=== PATIENT | female | born 1980 | race Caucasian/White ===

== ENCOUNTER 2017-04-29 17:52 | Inpatient (IN) | payer OTHER ==
[~2017-04-29] VITALS: Ht 157.4 cm; Wt 52.9 kg
[~2017-04-29 17:52] MED LIST: ATARAX25 MG PO; AUGMENTIN 875875 MG PO; BACTRIM DS 8001 TA1 PO; CYMBALTA20 M1 PO; DICLOFENAC POTA50 MG PO; DUONEB 3 MG/3 ML3 M1 INH; ELIMITE 5%60 GM PO; HYDROCODONE BIT1 T11 PO; MEDROL DOSEPAK4 MG PO; MOTRIN800 MG PO; NAPROSYN500 MG PO; NKHM; NO DAILY MEDS; NORFLEX100 MG PO; PREDNICOT20 MG PO; PREDNISONE10 MG PO; PREDNISONE20 MG PO; PROVENTIL0.09 MG/AC IH; ZITHROMAX Z PA250 MG PO
[2017-04-29 17:58] VITALS: BP 123/81
[2017-04-29 18:20] LABS: BASO % 0.4 % (0.0-1.0); EOS # 0.2 10*3/uL (0.0-0.4); EOS % 1.5 % (1.0-4.0); HEMATOCRIT 41.9 % (37.0-47.0); HEMOGLOBIN 14.5 g/dl (12.0-16.0); LYMPH # 3.7 10*3/uL (1.3-4.4); LYMPH % 34.4 % (27.0-41.0); MEAN CELL VOLUME 95.7 fl (81.0-99.0); MEAN CORPUSCULAR HGB 33.1 pg (27.0-31.0); MEAN CORPUSCULAR HGB CONC 34.6 g/dl (33.0-37.0); MEAN PLATELET VOLUME 10.3 fl (9.6-12.3); MONO # 0.7 10*3/uL (0.1-1.0); MONO % 6.3 % (3.0-9.0); NEUT # 6.2 10*3/uL (2.3-7.9); NEUT % 56.9 % (47.0-73.0); PLATELET COUNT AUTOMATED 193 10*3/uL (130-400); RED BLOOD COUNT 4.38 10*6/uL (4.10-5.10); RED CELL DISTRI WIDTH 12.1 % (0-14.5); WHITE BLOOD COUNT 10.8 10*3/uL (4.8-10.8)
[2017-04-29] MEDS ORDERED: AMLODIPINE BES2.5 MG PO (18:25)
[2017-04-29] MEDS ORDERED: ASPIRIN ADULT L81 M2 PO (18:25)
[2017-04-29] MEDS ORDERED: METOPROLOL SUCC25 M2 PO (18:25)
[2017-04-29 18:36] LABS: ALBUMIN 3.2 gm/dl (3.1-4.5); ALKALINE PHOSPHATASE 83 U/L (45-117); BUN 11 mg/dl (7-24); CHLORIDE 106 mmol/L (98-107); CREATININE 0.95 mg/dL (0.55-1.02); POTASSIUM 3.7 mmol/L (3.5-5.1); SGOT/AST 14 IU/L (3-35); SGPT/ALT 17 U/L (12-78); SODIUM 140 mmol/L (136-145); TOTAL PROTEIN 6.8 gm/dL (6.4-8.2)
[2017-04-29 18:37] LABS: TROPONIN I < 0.015 ng/ml (<0.045)
[2017-04-29 19:05] LABS: BILIRUBIN NEGATIVE (NEGATIVE); BLOOD NEGATIVE (NEGATIVE); CLARITY CLEAR (CLEAR); COLOR YELLOW (YELLOW); GLUCOSE NEGATIVE (NEGATIVE); KETONE NEGATIVE (NEGATIVE); LEUKO ESTERASE NEGATIVE (NEGATIVE); NITRITE NEGATIVE (NEGATIVE); SPECIFIC GRAVITY <= 1.005 (1.005-1.030); UROBILINOGEN 0.2 E.U./dl (0.2-1.0)
[2017-04-29 19:13] LABS: BACTERIA 1+; EPITHELIAL CELLS 0-2; WBC 0-2 wbc/hpf (0-5)
[2017-04-29 19:27] VITALS: BP 102/72
[2017-04-29 19:34] VITALS: BP 120/76
--- NOTE | 2017-04-29 20:06 | NUR ---
PATIENT TO GO TO ROOM 420 WHEN ROOM IS READY. STAFF FROM INPATIENT SIDE WILL CALL WHEN BED IS AVAILABLE FOR PATIENT TRANSPORT.
--- NOTE | 2017-04-29 20:27 | NUR ---
STAFF NURSE UNABLE TO TAKE REPORT AT THIS TIME. THEY WILL CALL BACK WHEN AVAILABLE.
[2017-04-29 20:59] VITALS: BP 121/66
--- NOTE | 2017-04-29 21:00 | NUR ---
A 37, admitted to 4E, under the services of HEYDI Terrazas DO with a diagnosis of CHEST PAIN R/O [place]. Chief complaint is CHEST PAIN. Patient arrived via bed from ER. Monitor applied. Initial assessment completed. Vital signs taken and recorded. HEYDI TERRAZAS DO notified of admission to the unit. Orders received. See assessment for past medical history, medications and allergies. Patient and/or family oriented to unit. visitation policy reviewed. Clothing/patient valuable form completed. ELVA JETT
--- NOTE | 2017-04-29 21:33 | NUR ---
MED REC UP TO DATE WITH PT MED BOTTLES FROM HOME. MEDICATIONS SENT TO PHARMACY
--- NOTE | 2017-04-29 21:37 | NUR ---
CALLED ANSWERING SERVICE FOR NEW CONSULT, DR MOY GYMNASIUM TEACHER. HE STATES TO CALL DR PHILLIPS AFTER 7AM REGARDING CONSULT.
--- NOTE | 2017-04-29 21:56 | NUR ---
DR PARIKH IN ROOM TO SEE PATIENT. MADE AWARE THAT MED REC UP TO DATE AND PT HASN'T TAKEN MEDS TODAY
--- NOTE | 2017-04-29 23:04 | NUR ---
PATIENT MEDICATED WITH NORCO FOR PAIN RATED 7/10 ON A 0/10 PAIN SCALE IN CHEST, SHOULDER AND BACK.
[2017-04-30] VITALS: BP 109/70
--- NOTE | 2017-04-30 | NUR ---
PER PATIENT, EARLIER NORCO EFFTECTIVE
--- NOTE | 2017-04-30 02:00 | NUR ---
SLEEPING. RESP EASY AND NONLABORED ON ROOM AIR. NO DISTRESS NOTED. CALL LIGHT IN REACH. WILL CONTINUE TO MONITOR.
--- NOTE | 2017-04-30 07:03 | NUR ---
CALLED AND SPOKE TO DR PHILLIPS REGARDING CONSULT. HE STATES TO CALL HIS OFFICE AT 0930 AND HAVE THEM FAX PT HEART CATH RESULTS AND CALL HIM WITH RESULTS AND HE WILL SEE PT TODAY. MADE AM RN AWARE OF THIS.
[2017-04-30 07:53] LABS: BASO % 0.1 % (0.0-1.0); EOS % 0.1 % (1.0-4.0); HEMATOCRIT 42.5 % (37.0-47.0); HEMOGLOBIN 14.6 g/dl (12.0-16.0); LYMPH # 1.3 10*3/uL (1.3-4.4); LYMPH % 17.8 % (27.0-41.0); MEAN CORPUSCULAR HGB 33.3 pg (27.0-31.0); MEAN CORPUSCULAR HGB CONC 34.4 g/dl (33.0-37.0); MEAN PLATELET VOLUME 10.5 fl (9.6-12.3); MONO # 0.1 10*3/uL (0.1-1.0); MONO % 1.6 % (3.0-9.0); NEUT # 5.7 10*3/uL (2.3-7.9); NEUT % 79.8 % (47.0-73.0); PLATELET COUNT AUTOMATED 174 10*3/uL (130-400); RED BLOOD COUNT 4.38 10*6/uL (4.10-5.10); RED CELL DISTRI WIDTH 12.1 % (0-14.5); WHITE BLOOD COUNT 7.1 10*3/uL (4.8-10.8)
[2017-04-30 08:00] VITALS: BP 90/50
[2017-04-30 08:01] LABS: ACT PARTIAL THROMBO TIME 25.1 SECONDS (20.8-31.5)
[2017-04-30 08:07] LABS: ALKALINE PHOSPHATASE 73 U/L (45-117); BUN 10 mg/dl (7-24); CHLORIDE 109 mmol/L (98-107); CHOLESTEROL 165 mg/dL (<200); CREATININE 0.72 mg/dL (0.55-1.02); FREE T4 1.16 ng/dl (0.76-1.46); HDL CHOLESTEROL 54 mg/dl (40-60); LDL CHOLESTEROL 84 mg/dL (9-159); PHOSPHOROUS 2.3 mg/dL (2.5-4.9); POTASSIUM 3.9 mmol/L (3.5-5.1); SGOT/AST 15 IU/L (3-35); SGPT/ALT 18 U/L (12-78); SODIUM 142 mmol/L (136-145); TOTAL PROTEIN 6.7 gm/dL (6.4-8.2); TRIGLYCERIDES 134 mg/dl (<150); VLDL CHOLESTEROL 27 mg/dL (6-40)
[2017-04-30 09:34] LABS: VITAMIN D, 25-HYDROXY 26.8 ng/mL (30-100)
--- NOTE | 2017-04-30 09:45 | NUR ---
CALLED [facility] AT [facility] FOR HEART CATH RESULTS PER DR. PHILLIPS'S REQUEST. HONG IN [facility] STATES THEY WILL BE SENT OVER REI
--- NOTE | 2017-04-30 10:00 | NUR ---
Cylinder Honer in to talk to patient. Patient states lives at HOME with BOYFRIEND AND HER CHILDREN. There are 14 steps in the home. Physician: DR TURNER Pharmacy: [facility] IN [place] Home health services: NONE Patient's level of ADLs: INDEPENDENT Patient has working utilities: YES DME: NONE Follow-up physician's appointment after d/c: WILL BE MADE PRIOR TO DC Does patient want to access PORTAL?: Discharge plan HOME. MAMI HERNANDES
--- NOTE | 2017-04-30 10:26 | NUR ---
CALLED DR. PHILLIPS WITH UNREMARKABLE RESULTS OF HEART CATH. HE STATES HE WILL BE IN TO SEE THE PATIENT THIS AFTERNOON.
[2017-04-30 12:00] VITALS: BP 95/64
--- NOTE | 2017-04-30 15:26 | NUR ---
PATIENT REQUESTING NICOTINE PATCH. NOTIFIED DR EAGLE, SHE STATES SHE WILL PUT THE ORDER IN.
[2017-04-30 16:00] VITALS: BP 95/50
--- NOTE | 2017-04-30 17:12 | NUR ---
PHONED DR. PHILLIPS RE: PLANS FOR HER CARE. PER DR. PHILLIPS PATIENT MAY BE DISCHARGED IF MEDICALLY STABLE AND HE WILL FOLLOW UP WITH HER IN HIS OFFICE ON OUT-PATIENT BASIS. DR. MENDIOLA NOTIFIED OF THIS.
[2017-04-30] MEDS ORDERED: CEPHALEXIN500 M1 PO (17:14)
[2017-04-30] MEDS ORDERED: ZITHROMAX TRI-500 M1 PO (17:24)
[2017-04-30] MEDS ORDERED: AZITHROMYCIN500 M2 PO (17:26)
--- NOTE | 2017-04-30 17:52 | NUR ---
MEDICATED WITH PRN PO TYLENOL FOR LEFT SHOULDER PAIN.
--- NOTE | 2017-04-30 18:25 | NUR ---
Discharge instructions reviewed with patient/family. Patient receptive and verbalizes understanding. Follow-up care arranged. Written instructions given to patient/family. XIAO KRUEGER
--- NOTE | 2017-04-30 18:25 | NUR ---
PER PATIENT, SHE HAD THE FLU VACCINE EARLIER THIS MORNING.
--- NOTE | 2017-04-30 18:25 | NUR ---
PATIENT DISCHARGED TO FRONT LOBBY, AMBULATORY WITH FAMILY MEMBERS, FOR TRANSPORT HOME BY PRIVATE VEHICLE.
== END 2017-04-30 18:31 | disposition home or self-care (01) | DRG 194 ==
LOC: ED 17:52 → 4E 19:35 → EDHOLD 19:35 → 4E 20:26
PROVIDERS: Internal Medicine; Nurse Practitioner Family; ADMIT Internal Medicine
DX: J18.1 Lobar pneumonia, unspecified organism (principal); E44.1 Mild protein-calorie malnutrition; J45.901 Unspecified asthma with (acute) exacerbation; E83.41 Hypermagnesemia; K21.9 Gastro-esophageal reflux disease without esophagitis; Z68.1 Body mass index [BMI] 19.9 or less, adult; F41.0 Panic disorder [episodic paroxysmal anxiety]; I10 Essential (primary) hypertension; F17.200 Nicotine dependence, unspecified, uncomplicated; R07.89 Other chest pain; F32.9 Major depressive disorder, single episode, unspecified; R09.1 Pleurisy; Z88.8 Allergy status to other drugs, medicaments and biological substances; Z79.82 Long term (current) use of aspirin; Z88.1 Allergy status to other antibiotic agents; Z79.899 Other long term (current) drug therapy; Z90.710 Acquired absence of both cervix and uterus; Z98.51 Tubal ligation status; Z82.49 Family history of ischemic heart disease and other diseases of the circulatory system; Z83.3 Family history of diabetes mellitus; Z83.6 Family history of other diseases of the respiratory system; Z80.0 Family history of malignant neoplasm of digestive organs; Z71.6 Tobacco abuse counseling

== ENCOUNTER 2018-03-09 13:34 | Emergency (ER) | payer OTHER ==
[~2018-03-09] VITALS: Ht 157.4 cm; Wt 54.4 kg
--- NOTE | ~2018-03-09 | EKG ---
[place], [place] ELECTROCARDIOGRAM REPORT NAME: MIKO NAVARRETE UNIT #: [id number] ROOM: DOCTOR: EPIPHANY DRAFT REPORT BIRTHDATE: [birth year] [facility] Test Date: 2018-03-09 Test Time: 13:47:57 Pat Name: MIKO NAVARRETE Department: Room: Gender: F Roll Filler: : 1980 Requested By: ANH VALDEZ Order Number: [id number] Reading MD: Antonio Bravo MD Measurements Intervals [place] Rate: 67 P: 15 DC: 96 QRS: 72 QRSD: 97 T: 69 QT: 408 QTc: 431 Interpretive Statements Sinus rhythm Short DC interval RSR' in V1 or V2, right VCD or RVH Electronically Signed On 03-09-2018 13:04:07 PDT by Antonio Bravo MD CM:EKGRPT:ELECTROCARDIOGRAM REPORT [id number] 1304 ANH VALDEZ EPIPHANY DRAFT REPORT ANH VALDEZ
[~2018-03-09 13:34] MED LIST changes: +AMLODIPINE BES2.5 MG PO; +ASPIRIN ADULT L81 M2 PO; +AZITHROMYCIN500 M2 PO; +CEPHALEXIN500 M1 PO; +METOPROLOL SUCC25 M2 PO; +ZITHROMAX TRI-500 M1 PO
[2018-03-09 13:57] LABS: BASO % 0.3 % (0.0-1.0); EOS # 0.1 10*3/uL (0.0-0.4); EOS % 1.3 % (1.0-4.0); HEMATOCRIT 43.2 % (37.0-47.0); HEMOGLOBIN 14.8 g/dl (12.0-16.0); LYMPH # 2.9 10*3/uL (1.3-4.4); LYMPH % 32.3 % (27.0-41.0); MEAN CELL VOLUME 96.9 fl (81.0-99.0); MEAN CORPUSCULAR HGB 33.2 pg (27.0-31.0); MEAN CORPUSCULAR HGB CONC 34.3 g/dl (33.0-37.0); MEAN PLATELET VOLUME 10.7 fl (9.6-12.3); MONO # 0.5 10*3/uL (0.1-1.0); MONO % 5.1 % (3.0-9.0); NEUT # 5.5 10*3/uL (2.3-7.9); NEUT % 60.7 % (47.0-73.0); PLATELET COUNT AUTOMATED 185 10*3/uL (130-400); RED BLOOD COUNT 4.46 10*6/uL (4.10-5.10); RED CELL DISTRI WIDTH 12.2 % (0-14.5)
[2018-03-09 14:12] LABS: ACT PARTIAL THROMBO TIME 22.3 SECONDS (20.8-31.5)
[2018-03-09 14:14] LABS: ALBUMIN 3.4 gm/dl (3.1-4.5); ALKALINE PHOSPHATASE 62 U/L (45-117); BUN 8 mg/dl (7-24); CHLORIDE 108 mmol/L (98-107); CREATININE 0.75 mg/dL (0.55-1.02); SGOT/AST 17 IU/L (3-35); SGPT/ALT 22 U/L (12-78); SODIUM 142 mmol/L (136-145); TOTAL PROTEIN 6.4 gm/dL (6.4-8.2)
[2018-03-09 14:19] LABS: TROPONIN I < 0.015 ng/ml (<0.045)
[2018-03-09 14:53] VITALS: BP 120/75
== END 2018-03-09 15:18 | disposition left against medical advice (07) ==
LOC: ED 13:34
PROVIDERS: Nurse Practitioner Family
DX: R07.89 Other chest pain (principal); M54.2 Cervicalgia; R20.0 Anesthesia of skin; F17.200 Nicotine dependence, unspecified, uncomplicated; Z88.1 Allergy status to other antibiotic agents; Z79.899 Other long term (current) drug therapy; Z79.82 Long term (current) use of aspirin

== ENCOUNTER 2018-05-20 09:43 | Inpatient (IN) | payer SELFPAY ==
[~2018-05-20] VITALS: Ht 167.6 cm; Wt 55.3 kg
--- NOTE | ~2018-05-20 | EKG ---
[place], [place] ELECTROCARDIOGRAM REPORT NAME: MIKO NAVARRETE UNIT #: [id number] ROOM: 526 DOCTOR: EPIPHANY DRAFT REPORT BIRTHDATE: [birth year] [facility] Test Date: 2018-05-20 Test Time: 10:09:01 Pat Name: MIKO NAVARRETE Department: Room: 526 Gender: F Cmv Driver: : 1980 Requested By: MOI GUTIERREZ DNP Order Number: [id number] Reading MD: Power Marx MD Measurements Intervals [place] Rate: 88 P: 66 ID: 110 QRS: 72 QRSD: 91 T: 72 QT: 352 QTc: 426 Interpretive Statements Sinus rhythm Borderline short ID interval RSR' in V1 or V2, right VCD or RVH Compared to ECG 03/09/2018 13:47:57 No significant changes Electronically Signed On 05-22-2018 12:21:28 PST by Power Marx MD CM:EKGRPT:ELECTROCARDIOGRAM REPORT [id number] 1221 MOI GUTIERREZ DNP EPIPHANY DRAFT REPORT MOI GUTIERREZ DNP
--- NOTE | ~2018-05-20 | PR ---
[place], [place] PROGRESS NOTE NAME: MIKO NAVARRETE [facility] #: [id number] UNIT #: [id number] ROOM: 526 DOCTOR: ARNEL ROSE MD,ROSA BIRTHDATE: [birth year] DOS: 05/23/2018 PULMONARY PROGRESS NOTE SUBJECTIVE: The patient is noted comfortable, without any acute distress. She has not been reporting any symptoms of fever or chills. Coughing, shortness of breath and all other symptoms have been resolving progressively in the last 24 hours. OBJECTIVE: VITAL SIGNS: Normal temperature, respiratory rate of 18, heart rate of 99, blood pressure 108/58. The pulse oxygen saturation recorded as 94% saturation. HEENT: Examination shows head was atraumatic. Eyes nonicterus. NECK: Supple. CARDIOVASCULAR: S1 and S2 audible. LUNGS: Without any wheeze or crackles. ABDOMEN: Soft, nontender. Bowel sounds present. EXTREMITIES: Noted without any acute edema. IMPRESSION: 1. The patient with resolving acute asthmatic bronchitis at this time gradually and progressively in the last 24 hours. 2. History of chronic nicotine dependence. PLAN OF THERAPY: Discharge planning for the patient could be started from pulmonary standpoint. Tapering dose of prednisone. Tobacco cessation counseling was done. Outpatient followup could be established by the patient if she wishes to do so. ROSA SEALS MD CM:PNTRANS [id number] ROSA ROSE MD 05/23/18 1028 interface
--- NOTE | ~2018-05-20 | CON ---
[place], [place] REPORT OF CONSULTATION NAME: MIKO NAVARRETE [facility] #: [id number] UNIT #: [id number] ROOM: 526 DOCTOR: ROSA LEON MD BIRTHDATE: [birth year] DOS: 05/22/2018 PULMONARY CONSULTATION, EVALUATION AND MANAGEMENT CONSULTATION REQUESTED BY: Hospitalist service. REASON FOR CONSULTATION: For assessment of the bronchial disease and COPD exacerbation. HISTORY OF PRESENT ILLNESS: This is a 38-year-old white female who has been noted progressively getting respiratory symptom. The symptoms have been present for a couple of weeks or more. The patient stated that she took the Bactrim, which is left lower at home and some steroids. The symptoms have not resolved resulting in assessment in the Emergency Room on 05/20/2018. The patient has been assessed and admitted to the hospital. She denies symptoms of chest pain. Coughing has been noted with sputum expectoration intermittently, mucus to other colors. Wheezing is reported with tightness in the chest. There was no chest pain. There were no symptoms of hemoptysis. Shortness of breath occurs with exertion. REVIEW OF SYSTEMS: CONSTITUTIONAL: Fatigue and tiredness noted without any symptoms of fever or chills. EYES: Denies any burning, redness, or tenderness. EARS, NOSE, THROAT SYMPTOMS: Denies sore throat, hoarseness, otalgia, postnasal drainage or epistaxis. CARDIOVASCULAR: Denies angina pain, edema, pain of the lower extremities. GASTROINTESTINAL: Dysphagia, nausea, vomiting, diarrhea, abdominal pain, hematemesis, melena, or hematochezia. SKIN: Denies abnormal lesions or rashes. GENITOURINARY: No dysuria, suprapubic pain, hematuria. MUSCULOSKELETAL: No joint pain reported or any deformities. CENTRAL NERVOUS SYSTEM: No dizziness, headache, diplopia. Remaining systems were reviewed. They were noted all negative. PAST MEDICAL HISTORY: 1. Asthmatic bronchitis, treated by ut in 2009. 2. Chronic nicotine dependence. 3. Essential hypertension. 4. General anxiety disorder and depression. PAST SURGICAL HISTORY: 1. Therapeutic bronchoscopy several years ago. 3. Cardiac catheterization. 4. Hysterectomy. SOCIAL HISTORY: The patient currently lives at home. Tobacco use was noted from age of [age] years old, half a pack of cigarettes per day, active use. No history of alcohol use or illicit drug use reported. [place], [place] REPORT OF CONSULTATION NAME: [facility]RETE [id number] UNIT #: [id number] ROOM: 526 DOCTOR: ARNEL ROSE MD,ROSA BIRTHDATE: [birth year] FAMILY HISTORY: The patient's mother of complications of cancer in the abdomen. The father was known with history of coronary artery disease. CURRENT MEDICATIONS: Administered for the patient was noted as use of: 1. Vitamin D. 2. Metoprolol succinate. 3. Norvasc. 4. Aspirin. 5. Lovenox for DVT prophylaxis. 6. Solu-Medrol 40 mg b.i.d. 7. Mucinex 1200 mg p.o. b.i.d. 8. Nicotine replacement patches. 9. DuoNeb q.4 hours. 10. Zithromax. 11. Rocephin and others. DRUG ALLERGIES: NOTED : 1. DOXYCYCLINE. 2. MACROBID. 3. CIPROFLOXACIN. PHYSICAL EXAMINATION: GENERAL: The patient is a 38-year-old female who has been noted currently sitting comfortably on the bed without any distress. Height of 5 feet 6 inches, weight of 122, BMI 19. VITAL SIGNS: Normal temperature in the last 72 hours, respiratory rate 24-13, heart rate of 88-115, blood pressure 112/66-110/54. Pulse oxygen saturation recorded on room air is 95% saturation. HEENT: Head was atraumatic. Eyes nonicterus. NECK: Supple. CARDIOVASCULAR: S1, S2 audible. LUNGS: The patient moderate reduced breath sounds bilaterally with expiratory wheezing, no crackles. ABDOMEN: Soft, nontender. Bowel sounds present. EXTREMITIES: The patient noted without any acute edema. MUSCULOSKELETAL: The patient was noted without any acute deformities. CENTRAL NERVOUS SYSTEM: Cranial nerves 2-12 intact. LABORATORY DATA: The CBC that was done on admission on 05/20/2018: WBC count 15.2, hemoglobin 16.3, platelet count was normal. Lactic acid 0.8 on 05/20/2018. Influenza A and B, nasal washing antigen negative on 05/20/2018. PT, PTT on 05/20/2018 was normal as well. CMP done on 05/20/2018 was noted essentially normal. Chest x-ray, hyperinflation of the lungs on the 05/20/2018. CT of the chest does not show acute pulmonary abnormality, infiltration, other abnormalities. The blood culture from the 05/20/2018 no bacterial growth. The BMP this morning remains normal. CBC of the patient this morning, WBC count 17.5, hemoglobin and hematocrit normal, platelet count was normal. IMPRESSION: 1. The patient who has been currently admitted to the hospital noted with acute [place], [place] REPORT OF CONSULTATION NAME: MIKO NAVARRETE UNIT #: [id number] ROOM: 526 DOCTOR: ARNEL ROSE MD,ROSA BIRTHDATE: [birth year] asthmatic bronchitis with acute bronchitis, could be viral in origin, could be completely excluded. 2. Chronic nicotine dependence as well. 3. History of essential hypertension and other medical illnesses as reported previously. Acute general anxiety disorder and depression. PLAN OF MANAGEMENT: Counseling about tobacco cessation. Continue current dose of Solu-Medrol, bronchodilators and antibiotics. Continue to follow the culture of the patient as well. Other previous treatment, therapy plan and management previously will be continued. Supportive care, other therapy, plan of management. Additional change in treatment recommended based on progression of the illness. She is already receiving the nicotine placement patches to overcome the nicotine withdrawal. ROSA SEALS MD CM:CONSTR:REPORT OF CONSULTATION 1532 05/22/18 1718 interface
[2018-05-20 09:46] VITALS: BP 110/58
[2018-05-20 10:10] LABS: BASO # 0.1 10*3/uL (0.0-0.1); BASO % 0.4 % (0.0-1.0); EOS # 0.2 10*3/uL (0.0-0.4); EOS % 1.1 % (1.0-4.0); HEMATOCRIT 47.6 % (37.0-47.0); HEMOGLOBIN 16.3 g/dl (12.0-16.0); LYMPH # 4.8 10*3/uL (1.3-4.4); LYMPH % 31.4 % (27.0-41.0); MEAN CELL VOLUME 95.4 fl (81.0-99.0); MEAN CORPUSCULAR HGB 32.7 pg (27.0-31.0); MEAN CORPUSCULAR HGB CONC 34.2 g/dl (33.0-37.0); MEAN PLATELET VOLUME 10.1 fl (9.6-12.3); MONO # 0.8 10*3/uL (0.1-1.0); MONO % 5.1 % (3.0-9.0); NEUT # 9.3 10*3/uL (2.3-7.9); NEUT % 61.2 % (47.0-73.0); PLATELET COUNT AUTOMATED 233 10*3/uL (130-400); RED BLOOD COUNT 4.99 10*6/uL (4.10-5.10); RED CELL DISTRI WIDTH 12.2 % (0-14.5); WHITE BLOOD COUNT 15.2 10*3/uL (4.8-10.8)
[2018-05-20 10:19] LABS: ACT PARTIAL THROMBO TIME 21.4 SECONDS (20.8-31.5); INTERNATIONAL NORM RATIO 0.9 (2.0-3.5)
[2018-05-20 10:25] LABS: ALBUMIN 3.3 gm/dl (3.1-4.5); ALKALINE PHOSPHATASE 64 U/L (45-117); BUN 10 mg/dl (7-24); CHLORIDE 107 mmol/L (98-107); POTASSIUM 3.7 mmol/L (3.5-5.1); SGOT/AST 11 IU/L (3-35); SGPT/ALT 28 U/L (12-78); SODIUM 141 mmol/L (136-145); TOTAL PROTEIN 6.4 gm/dL (6.4-8.2)
[2018-05-20 10:27] LABS: TROPONIN I < 0.015 ng/ml (<0.045)
[2018-05-20 11:22] VITALS: BP 124/74
[2018-05-20] MEDS ORDERED: METOPROLOL SUCC25 M2 PO (11:49)
[2018-05-20 12:00] VITALS: BP 124/76
[2018-05-20 16:00] VITALS: BP 110/65
[2018-05-20 20:00] VITALS: BP 114/62
[2018-05-21] VITALS: BP 113/62
[2018-05-21 06:01] LABS: HEMATOCRIT 43.3 % (37.0-47.0); HEMOGLOBIN 14.7 g/dl (12.0-16.0); MEAN CELL VOLUME 97.3 fl (81.0-99.0); MEAN CORPUSCULAR HGB CONC 33.9 g/dl (33.0-37.0); MEAN PLATELET VOLUME 10.1 fl (9.6-12.3); PLATELET COUNT AUTOMATED 211 10*3/uL (130-400); RED BLOOD COUNT 4.45 10*6/uL (4.10-5.10); RED CELL DISTRI WIDTH 12.2 % (0-14.5); WHITE BLOOD COUNT 20.3 10*3/uL (4.8-10.8)
[2018-05-21 06:20] LABS: ALBUMIN 2.9 gm/dl (3.1-4.5); BUN 10 mg/dl (7-24); CHLORIDE 108 mmol/L (98-107); CHOLESTEROL 128 mg/dL (<200); CREATININE 0.75 mg/dL (0.55-1.02); PHOSPHOROUS 3.5 mg/dL (2.5-4.9); POTASSIUM 3.9 mmol/L (3.5-5.1); SGOT/AST 9 IU/L (3-35); SGPT/ALT 27 U/L (12-78); SODIUM 140 mmol/L (136-145); TRIGLYCERIDES 79 mg/dl (<150); VLDL CHOLESTEROL 16 mg/dL (6-40)
[2018-05-21 06:26] LABS: ALKALINE PHOSPHATASE 61 U/L (45-117); FREE T4 0.93 ng/dl (0.76-1.46); HDL CHOLESTEROL 65 mg/dl (40-60); LDL CHOLESTEROL 47 mg/dL (9-159); THYROID STIM HORMONE (HS) 0.562 uIU/ml (0.358-4.75)
[2018-05-21 06:35] LABS: TOTAL CELLS COUNTED 100 #CELLS
[2018-05-21 06:36] LABS: PLATELET SUFFICIENCY NORMAL (NORMAL)
[2018-05-21 07:20] LABS: VITAMIN D, 25-HYDROXY 29.3 ng/mL (30-100)
[2018-05-21 07:33] VITALS: BP 106/59
[2018-05-21 11:46] VITALS: BP 108/58
[2018-05-21 16:00] VITALS: BP 102/59
[2018-05-21 20:00] VITALS: BP 103/60
[2018-05-22] VITALS: BP 112/66
[2018-05-22 06:46] LABS: BASO % 0.1 % (0.0-1.0); HEMATOCRIT 43.1 % (37.0-47.0); HEMOGLOBIN 14.4 g/dl (12.0-16.0); LYMPH # 1.4 10*3/uL (1.3-4.4); LYMPH % 8.1 % (27.0-41.0); MEAN CELL VOLUME 99.1 fl (81.0-99.0); MEAN CORPUSCULAR HGB 33.1 pg (27.0-31.0); MEAN CORPUSCULAR HGB CONC 33.4 g/dl (33.0-37.0); MEAN PLATELET VOLUME 9.9 fl (9.6-12.3); MONO # 0.4 10*3/uL (0.1-1.0); MONO % 2.2 % (3.0-9.0); NEUT # 15.5 10*3/uL (2.3-7.9); NEUT % 88.6 % (47.0-73.0); PLATELET COUNT AUTOMATED 225 10*3/uL (130-400); RED BLOOD COUNT 4.35 10*6/uL (4.10-5.10); RED CELL DISTRI WIDTH 12.5 % (0-14.5); WHITE BLOOD COUNT 17.5 10*3/uL (4.8-10.8)
[2018-05-22 07:25] LABS: CHLORIDE 108 mmol/L (98-107); POTASSIUM 4.7 mmol/L (3.5-5.1); SODIUM 140 mmol/L (136-145)
[2018-05-22 07:39] LABS: BUN 10 mg/dl (7-24); CREATININE 0.76 mg/dL (0.55-1.02)
[2018-05-22 10:17] VITALS: BP 110/54
[2018-05-22 12:00] VITALS: BP 106/61
[2018-05-22 16:00] VITALS: BP 147/87
[2018-05-22 20:00] VITALS: BP 113/64
[2018-05-23] VITALS: BP 103/54; BP 110/54
[2018-05-23 08:00] VITALS: BP 108/58
[2018-05-23] MEDS ORDERED: PROAIR HFA8.5 GM INH (09:57)
[2018-05-23] MEDS ORDERED: PREDNISONE10 MG PO (09:57)
[2018-05-23] MEDS ORDERED: NYST SUSP PO (10:04)
== END 2018-05-23 11:21 | disposition home or self-care (01) | DRG 871 ==
LOC: ED 09:43 → 5E 11:19 → EDHOLD 11:19 → 5E 11:39
PROVIDERS: Internal Medicine; Nurse Practitioner Family
DX: A41.9 Sepsis, unspecified organism (principal); J18.9 Pneumonia, unspecified organism; J45.901 Unspecified asthma with (acute) exacerbation; B37.0 Candidal stomatitis; I10 Essential (primary) hypertension; F41.1 Generalized anxiety disorder; F17.210 Nicotine dependence, cigarettes, uncomplicated; F32.9 Major depressive disorder, single episode, unspecified; I25.89 Other forms of chronic ischemic heart disease; J20.9 Acute bronchitis, unspecified; Z90.710 Acquired absence of both cervix and uterus; Z88.1 Allergy status to other antibiotic agents; Z79.82 Long term (current) use of aspirin; Z79.899 Other long term (current) drug therapy; Z82.49 Family history of ischemic heart disease and other diseases of the circulatory system; Z83.3 Family history of diabetes mellitus; Z71.6 Tobacco abuse counseling; Z98.51 Tubal ligation status; Z80.0 Family history of malignant neoplasm of digestive organs; Z82.5 Family history of asthma and other chronic lower respiratory diseases

== ENCOUNTER 2018-09-07 16:15 | Emergency (ER) | payer OTHER ==
[~2018-09-07] VITALS: Ht 157.4 cm; Wt 55.8 kg
[2018-09-07 16:15] VITALS: BP 130/80
[~2018-09-07 16:15] MED LIST changes: +NYST SUSP PO; +PROAIR HFA8.5 GM INH
== END 2018-09-07 17:45 | disposition home or self-care (01) ==
LOC: ED 16:15
DX: S50.11XA Contusion of right forearm, initial encounter (principal); F17.200 Nicotine dependence, unspecified, uncomplicated; Z88.1 Allergy status to other antibiotic agents; Z88.8 Allergy status to other drugs, medicaments and biological substances; Z79.899 Other long term (current) drug therapy; Z79.82 Long term (current) use of aspirin; W23.0XXA Caught, crushed, jammed, or pinched between moving objects, initial encounter; Y93.89 Activity, other specified; Y92.89 Other specified places as the place of occurrence of the external cause; Y99.8 Other external cause status

== ENCOUNTER 2018-10-25 09:01 | Emergency (ER) | payer OTHER ==
[~2018-10-25] VITALS: Ht 157 cm; Wt 569.7 kg
[2018-10-25 09:06] VITALS: BP 107/80
[2018-10-25 09:38] LABS: BASO % 0.3 % (0.0-1.0); EOS # 0.2 10*3/uL (0.0-0.4); EOS % 2.5 % (1.0-4.0); HEMATOCRIT 47.7 % (37.0-47.0); LYMPH # 2.5 10*3/uL (1.3-4.4); MEAN CORPUSCULAR HGB 33.2 pg (27.0-31.0); MEAN CORPUSCULAR HGB CONC 33.5 g/dl (33.0-37.0); MEAN PLATELET VOLUME 10.4 fl (9.6-12.3); MONO # 0.5 10*3/uL (0.1-1.0); MONO % 5.6 % (3.0-9.0); NEUT # 6.1 10*3/uL (2.3-7.9); NEUT % 65.3 % (47.0-73.0); PLATELET COUNT AUTOMATED 194 10*3/uL (130-400); RED BLOOD COUNT 4.82 10*6/uL (4.10-5.10); RED CELL DISTRI WIDTH 12.5 % (0-14.5); WHITE BLOOD COUNT 9.4 10*3/uL (4.8-10.8)
[2018-10-25 09:53] LABS: ALBUMIN 3.7 gm/dl (3.1-4.5); CREATININE 1.4 mg/dL (0.55-1.02); POTASSIUM 4.6 mmol/L (3.5-5.1); TOTAL PROTEIN 6.9 gm/dL (6.4-8.2)
[2018-10-25] MEDS ORDERED: ZOFRAN4 MG PO (09:54)
== END 2018-10-25 10:04 | disposition home or self-care (01) ==
LOC: ED 09:01
PROVIDERS: Nurse Practitioner Family
DX: S40.861A Insect bite (nonvenomous) of right upper arm, initial encounter (principal); I10 Essential (primary) hypertension; F17.200 Nicotine dependence, unspecified, uncomplicated; Z88.1 Allergy status to other antibiotic agents; Z88.8 Allergy status to other drugs, medicaments and biological substances; Z79.899 Other long term (current) drug therapy; Z79.82 Long term (current) use of aspirin; W57.XXXA Bitten or stung by nonvenomous insect and other nonvenomous arthropods, initial encounter; Y93.89 Activity, other specified; Y92.89 Other specified places as the place of occurrence of the external cause; Y99.8 Other external cause status

== ENCOUNTER 2019-03-16 17:49 | Inpatient (IN) | payer OTHER ==
[~2019-03-16] VITALS: Ht 154.9 cm; Wt 57.2 kg
--- NOTE | ~2019-03-16 | PR ---
[place], [place] PROGRESS NOTE NAME: MIKO NAVARRETE UNIT #: [id number] ROOM: 411 DOCTOR: ROSA LEON MD BIRTHDATE: [birth year] DOS: 03/18/2019 PULMONARY PROGRESS NOTE SUBJECTIVE: The patient was seen and examined. She has been still noted with symptoms of chest congestion, coughing, wheezing and shortness of breath; other symptoms have been noted somewhat decreased. Denies symptoms of chest pain stated by the patient. Denies symptoms of hemoptysis. Denies symptoms of nausea, vomiting, diarrhea, or abdominal pain. The patient has not been reporting any symptoms of headache or diplopia. Remaining systems were reviewed with the patient, they were noted all negative. OBJECTIVE: GENERAL: The patient is currently sitting on the bed this morning of assessment without any distress. VITAL SIGNS: Recorded as a normal temperature, respiratory rate recorded as 20, heart rate 75, blood pressure 118/73. Pulse oxygen saturation recorded on room air 94% saturation. HEENT: Examination shows head was atraumatic. Eyes nonicterus. NECK: Supple. CARDIOVASCULAR: S1, S2 was audible. LUNGS: Noted with decreased breath sounds and expiratory wheezing which are noted partially decreased from yesterday's examination. ABDOMEN: Soft, nontender. Bowel sounds present. EXTREMITIES: The patient was noted without any edema, clubbing or cyanosis. MUSCULOSKELETAL: Noted without any acute deformities. LABORATORY DATA: Blood culture, which was noted, no bacterial growth from 02/14/2019, from admission. Influenza A and B, nasal washing antigen completed today were negative. IMPRESSION: Severe acute exacerbation of chronic obstructive pulmonary disease and bronchial asthma combination acute bronchitis with partial reduction of wheezing was noted and other symptoms in the last 24 hours. PLAN OF MANAGEMENT: Continue current high dose of steroids, bronchodilators, oxygen supplementation. Assess the patient tomorrow, if the respiratory symptoms were not improve, certainly consider therapeutic bronchoscopy. [place], [place] PROGRESS NOTE NAME: MIKO NAVARRETE UNIT #: [id number] ROOM: 411 DOCTOR: ROSA LEON MD BIRTHDATE: [birth year] ROSA SEALS MD CM:PNEM 1251 ROSA ROSE MD 03/18/19 1609 interface
--- NOTE | ~2019-03-16 | PROC NOTE ---
[place], [place] PROCEDURE NOTE NAME: [facility]RETE [id number] #: [id number] ROOM: 411 DOCTOR: ARNEL ROSE MD,ROSA BIRTHDATE: [birth year] DOS: 03/20/2019 PROCEDURE: Bronchoscopy. PREOPERATIVE DIAGNOSES: Persistent severe cough, wheezing without any resolution with current maximum medical management. POSTOPERATIVE DIAGNOSES: Removal of large plugs of mucus, cleared from endobronchial tree subsegment bilaterally. There were no endobronchial obstructive lesions. PROCEDURE DESCRIPTION: Informed consent obtained for the patient. The patient was brought to the OR and placed in supine position. Conscious sedation administered ____. Bronchoscope advanced to the airway into the laryngeal area. Epiglottis and vocal cords seen. Vocal cord noted yellowish in color moving symmetrically with movements. Bronchoscope advanced to vocal cord and tracheal lumen shows moderate amount of thick mucus secretion, which was suctioned out to the fermin level. All the secretions are clear of tracheal lumen, the fermin noted sharp. The right upper, right middle, right lower, left upper, lingular lower lobe bronchi were all examined. All the secretions cleared off with normal saline wash, sent for culture. Procedure well tolerated by the patient without difficulty. Postoperative findings will be discussed with the patient once the patient recovers the effects of acute sedation. ROSA SEALS MD CM:PROCNOTE:PROCEDURE NOTE 1143 0043 ROSA ROSE MD
--- NOTE | ~2019-03-16 | CON ---
[place], [place] REPORT OF CONSULTATION NAME: MIKO NAVARRETE [facility] #: [id number] UNIT #: [id number] ROOM: 411 DOCTOR: ROSA LEON MD BIRTHDATE: [birth year] DOS: 03/17/2019 PULMONARY CONSULTATION CONSULTATION REQUESTED BY: Hospitalist service. REASON FOR CONSULTATION: Assessment of ongoing acute respiratory complaints. HISTORY OF PRESENT ILLNESS: This is a 39-year-old white female patient with past history of bronchial asthma/COPD. The patient has been noted ill over 2 weeks. The symptoms have been noted gradually worsening, nonresolving current treatment. The patient has been seen in the hospital for further assessment currently treated in the hospital. She was complaining of lot of secretion in the chest, which has been expectorated by the patient intermittently. Sputum expectoration. The vocal cords were noted small quantity and mucoid and white. She does complain of symptoms of tightness in the chest with wheezing and shortness of breath occurring with exertion. PAST MEDICAL HISTORY: 1. History of bronchial asthma. 2. Nicotine dependence. 3. Essential hypertension. 4. Anxiety disorder and depression. PAST SURGICAL HISTORY: 1. Therapeutic bronchoscopy. 2. Cardiac catheterization. 3. Hysterectomy. SOCIAL HISTORY: The patient lives at home. Smoking was known from the age of [age] years old, continues to smoke half a pack of cigarettes per day. Denies history of alcohol or illicit drug use. FAMILY HISTORY: The patient's mother of complications of cancer of the abdomen, father's history reported for coronary artery disease. REVIEW OF SYSTEMS: CONSTITUTIONAL SYMPTOMS: Fatigue and tiredness reported. There were no symptoms of fever or chills. EYES: Denies any burning, redness, or tenderness. EARS, NOSE, THROAT, EAR, NOSE, THROAT SYMPTOMS: No sore throat, hoarseness, otalgia, postnasal drainage or epistaxis. CARDIOVASCULAR: Denies anginal pain, edema, palpitation. LUNGS: Severe decreased breath sounds noted, diffuse expiratory wheezing in the lungs. There were no crackles. ABDOMEN: Soft, nontender. Bowel sounds present. EXTREMITIES: The patient without any acute edema, clubbing, cyanosis. MUSCULOSKELETAL: Without deformity. SKIN: No lesions or rashes. CENTRAL NERVOUS SYSTEM: Intact. [place], [place] REPORT OF CONSULTATION NAME: MIKO NAVARRTEE UNIT #: [id number] ROOM: 411 DOCTOR: ARNEL ROSE MD,ROSA BIRTHDATE: [birth year] LABORATORY DATA: Labs reviewed for this consultation. CBC that was done on 03/16/2019 WBC count 18,000, hemoglobin and hematocrit normal, platelet count normal. The CMP that was done yesterday was noted as normal CMP. CBC done this morning, WBC count 11.1, remaining CBC normal. BMP done this morning, glucose 132. Other electrolytes were normal. Chest x-ray, 2-view, which was done on this admission was noted hyperinflation of the lungs without any acute pulmonary infiltration. IMPRESSION: 1. The patient will be currently admitted to the hospital with a diagnosis finding consistent with acute exacerbation of bronchial asthma, possible COPD as well. 2. Chronic nicotine dependence was also noted at the present time. 3. General anxiety disorder as well. PLAN OF MANAGEMENT: Continuation of the patient on the current dose of Solu-Medrol 60 mg IV b.i.d. bronchodilators every 4 hours and oxygen supplementation and the antibiotics. Monitor respiratory status. Tobacco cessation has been addressed with the patient. The patient already started on nicotine replacement patches that will be continued. Other additional treatment changes will be recommended based on progression of her illness. ROSA SEALS MD CM:CONSTR:REPORT OF CONSULTATION 1315 03/17/19 2113 interface
--- NOTE | ~2019-03-16 | PR ---
[place], [place] PROGRESS NOTE NAME: MIKO NAVARRETE [facility] #: [id number] UNIT #: [id number] ROOM: 411 DOCTOR: ARNEL ROSE MD,ROSA BIRTHDATE: [birth year] DOS: 03/19/2019 SUBJECTIVE: She has been still noted with cough, remains severe at time without any sputum expectoration. Denies symptoms of chest pain or hemoptysis. Tightness in the chest was noted with wheezing and shortness of breath with exertion. Denies symptoms of headache or diplopia. Denies symptoms of nausea, vomiting, diarrhea, abdominal pain, hematemesis, melena, or hematochezia. Remaining systems were reviewed. They were noted all negative. OBJECTIVE: VITAL SIGNS: Normal temperature, respiratory rate 18, heart rate 74, blood pressure 104/68. Pulse oxygen saturation on room air 95% saturation recorded. HEENT: Examination shows head was atraumatic. Eyes nonicterus. NECK: Supple. CARDIOVASCULAR: S1, S2 is audible. LUNGS: Noted decreased breath sounds in the lung, moderate expiratory wheezing without any changes from yesterday. ABDOMEN: Flat, soft, nontender. Bowel sounds present. EXTREMITIES: No acute change. MUSCULOSKELETAL: Without acute deformities. CENTRAL NERVOUS SYSTEM: Intact. IMPRESSION: 1. Ongoing acute exacerbation of chronic obstructive pulmonary disease and bronchial asthma exacerbation, gradually and progressively. 2. The patient with acute tracheobronchitis as well. PLAN OF MANAGEMENT: Continuation of bronchodilators, oxygen supplementation, other treatment as previously ongoing. Bronchoscopy was planned to be done tomorrow morning for assessment of the nonresolving respiratory symptoms and to clear the mucus impaction major airways. ROSA SEALS MD CM:PNTRANS 1240 [id number] ROSA ROSE MD 03/19/19 1443 interface
--- NOTE | ~2019-03-16 | PR ---
[place], [place] PROGRESS NOTE NAME: MIKO NAVARRETE UNIT #: [id number] ROOM: 411 DOCTOR: ROSA LEON MD BIRTHDATE: [birth year] DOS: 03/20/2019 SUBJECTIVE: The patient continued to have severe nonproductive cough, not resolved in the last 2 days. The wheezing has been noted decreased. Shortness of breath was decreased. There were no symptoms of chest pain, but tightness in the chest was still reported intermittently by the patient. Denies symptoms of any headache or diplopia. Denies symptoms of nausea, vomiting, diarrhea, abdominal pain, or gastroesophageal reflux symptoms. Denies pain of the lower extremities. Remaining systems were reviewed. They were noted all negative. She is currently noted n.p.o. past midnight for bronchoscopy, which is done today. OBJECTIVE: GENERAL: The patient was lying in the bed this morning of assessment without any distress. VITAL SIGNS: Normal temperature, respiratory rate 16, heart rate 89, blood pressure 111/64. Pulse oxygen saturation at rest on room air 94% saturation recorded. HEENT: Examination shows head was atraumatic. Eyes nonicterus. NECK: Supple. CARDIOVASCULAR: S1, S2 is audible. LUNGS: Noted without any crackles. The wheezing noted in the lungs bilaterally. ABDOMEN: Soft, nontender. Bowel sounds present. EXTREMITIES: No new change. MUSCULOSKELETAL: Without acute deformities. CENTRAL NERVOUS SYSTEM: Intact. LABORATORY DATA: Done today. IMPRESSION: Persistent acute exacerbation of chronic obstructive pulmonary disease, acute tracheobronchitis, history of nicotine abuse, ineffective cough, inability to expectorate sputum, persistent respiratory symptoms, now resolving with maximal medical management, here for bronchoscopy. PLAN OF MANAGEMENT: Proceed with the bronchoscopy. No change in treatment immediately will be needed. Any treatment changes, if necessary will be done and ordered after the bronchoscopy. [place], [place] PROGRESS NOTE NAME: MIKO NAVARRETE UNIT #: [id number] ROOM: 411 DOCTOR: ROSA LEON MD BIRTHDATE: [birth year] ROSA SEALS MD CM:PNTRANS [id number] ROSA ROSE MD 03/21/199 interface
[~2019-03-16 17:49] MED LIST changes: +ZOFRAN4 MG PO
[2019-03-16 17:52] VITALS: BP 142/87
--- NOTE | 2019-03-16 19:16 | NUR ---
Ambulatory to the bathroom for urine specimen.
[2019-03-16 19:23] LABS: BASO % 0.2 % (0.0-1.0); EOS % 0.1 % (1.0-4.0); HEMATOCRIT 46.1 % (37.0-47.0); HEMOGLOBIN 15.7 g/dl (12.0-16.0); LYMPH # 3.8 10*3/uL (1.3-4.4); LYMPH % 20.9 % (27.0-41.0); MEAN CELL VOLUME 97.1 fl (81.0-99.0); MEAN CORPUSCULAR HGB 33.1 pg (27.0-31.0); MEAN CORPUSCULAR HGB CONC 34.1 g/dl (33.0-37.0); MEAN PLATELET VOLUME 10.4 fl (9.6-12.3); MONO % 5.4 % (3.0-9.0); NEUT # 13.1 10*3/uL (2.3-7.9); NEUT % 72.7 % (47.0-73.0); PLATELET COUNT AUTOMATED 217 10*3/uL (130-400); RED BLOOD COUNT 4.75 10*6/uL (4.10-5.10); RED CELL DISTRI WIDTH 12.4 % (0-14.5)
[2019-03-16 19:29] VITALS: BP 141/102
--- NOTE | 2019-03-16 19:29 | NUR ---
MESH UNDERWEAR AND PADS PROVIDED SO PATIENTS COULD CHANGE PANTS DUE TO INCONTINENCE WHILE COUGHING.
[2019-03-16 19:37] LABS: ALBUMIN 3.7 gm/dl (3.1-4.5); ALKALINE PHOSPHATASE 73 U/L (45-117); BUN 8 mg/dl (7-24); CHLORIDE 107 mmol/L (98-107); CREATININE 0.86 mg/dL (0.55-1.02); POTASSIUM 4.3 mmol/L (3.5-5.1); SGOT/AST 28 IU/L (3-35); SODIUM 139 mmol/L (136-145); TOTAL PROTEIN 7.4 gm/dL (6.4-8.2)
[2019-03-16 19:38] LABS: BILIRUBIN NEGATIVE (NEGATIVE); BLOOD NEGATIVE (NEGATIVE); CLARITY CLEAR (CLEAR); COLOR YELLOW (YELLOW); GLUCOSE NEGATIVE (NEGATIVE); KETONE NEGATIVE (NEGATIVE); LEUKO ESTERASE NEGATIVE (NEGATIVE); NITRITE NEGATIVE (NEGATIVE); SPECIFIC GRAVITY 1.015 (1.005-1.030); UROBILINOGEN 0.2 E.U./dl (0.2-1.0)
[2019-03-16 19:38] LABS: SGPT/ALT 30 U/L (12-78)
[2019-03-16 19:50] LABS: BACTERIA 2+; EPITHELIAL CELLS 0-2; RBC 0-2 rbc/hpf (0-2); WBC 0-2 wbc/hpf (0-5)
[2019-03-16 20:32] VITALS: BP 138/92
--- NOTE | 2019-03-16 20:33 | NUR ---
UPDATED AND SANDWICH AND BRAVO MARSHALL PROVIDED. DENIES ANY NEEDS. CONTINUES TO HAVE FREQUENT COUGH.
[2019-03-16 22:35] VITALS: BP 114/58
--- NOTE | 2019-03-16 22:36 | NUR ---
SPOKE WITH PENELOPE TO UPDATE ON ETA TO ROOM.
--- NOTE | 2019-03-16 22:36 | NUR ---
UPDATED ON ROOM ASSIGNMENT.
[2019-03-16 22:48] VITALS: BP 114/69
--- NOTE | 2019-03-16 22:48 | NUR ---
A 39, admitted to , under the services of GRACY Lucia DO with a diagnosis of COPD, PNEUMONITIS. Chief complaint is SHORTNESS OF BREATH, PAIN WITH COUGH. Patient arrived via stretcher from ER. Monitor applied. Initial assessment completed. Vital signs taken and recorded. GRACY LUCIA DO notified of admission to the unit. Orders received. See assessment for past medical history, medications and allergies. Patient and/or family oriented to unit. [facility]. Clothing/patient valuable form completed. PENELOPE JENSEN A
[2019-03-16] MEDS ORDERED: ACCUNEB 0.1.25 MG/1 INH (23:32)
[2019-03-16] MEDS ORDERED: MILLIPRED DP5 M1 PO (23:33)
[2019-03-16] MEDS ORDERED: TESSALON PERLE100 MG PO (23:34)
[2019-03-16] MEDS ORDERED: SMZ TMP IV (23:35)
[2019-03-17 06:42] LABS: BUN 10 mg/dl (7-24); CHLORIDE 109 mmol/L (98-107); CREATININE 0.65 mg/dL (0.55-1.02); POTASSIUM 4.1 mmol/L (3.5-5.1); SODIUM 138 mmol/L (136-145)
[2019-03-17 06:45] LABS: HEMATOCRIT 42.7 % (37.0-47.0); HEMOGLOBIN 14.1 g/dl (12.0-16.0); LYMPH # 1.1 10*3/uL (1.3-4.4); LYMPH % 9.6 % (27.0-41.0); MEAN CELL VOLUME 97.7 fl (81.0-99.0); MEAN CORPUSCULAR HGB 32.3 pg (27.0-31.0); MEAN PLATELET VOLUME 11.1 fl (9.6-12.3); MONO # 0.1 10*3/uL (0.1-1.0); MONO % 0.9 % (3.0-9.0); NEUT # 9.8 10*3/uL (2.3-7.9); NEUT % 88.7 % (47.0-73.0); PLATELET COUNT AUTOMATED 194 10*3/uL (130-400); RED BLOOD COUNT 4.37 10*6/uL (4.10-5.10); RED CELL DISTRI WIDTH 12.4 % (0-14.5); WHITE BLOOD COUNT 11.1 10*3/uL (4.8-10.8)
[2019-03-17 08:00] VITALS: BP 114/56
--- NOTE | 2019-03-17 09:00 | NUR ---
Theatre Instructor in to talk to patient. Patient states lives at home with family There are few steps in the home. Physician: taras gutierrez [facility]acy: [facility] Home health services: none Patient's level of ADLs: INDEPENDENT Patient has working utilities: all working DME: nebulizer Follow-up physician's appointment after d/c: will be made by hospitalist nurse director upon discharge Does patient want to access PORTAL?: no Discharge plan discussed with patient, she states she lives at home with a friend, she is independent in adls and ambulation, she states she will return home when medically stable and denies any home needs. MELISA IRVIN
--- NOTE | 2019-03-17 09:34 | NUR ---
SAW DR SEALS IN [facility] AND GAVE HIM INFORMATION REGARDING CONSULT. DR SEALS WENT INTO ROOM AND SAW PATIENT.
[2019-03-17 12:00] VITALS: BP 111/64
[2019-03-17 16:04] VITALS: BP 114/70
--- NOTE | 2019-03-17 18:47 | NUR ---
PT SITTING UP IN ROOM, ALERT ORIENTED, PLEASANT. NO COMPLAINTS OF SOB AT THIS TIME. NO COUGH NOTED. RESPIATIONS UNLABORED ON ROOM AIR. PT DENIES NEEDING ANYTHING AT THIS TIME. CALL LIGHT IN REACH.
[2019-03-17 20:00] VITALS: BP 101/59
--- NOTE | 2019-03-17 22:33 | NUR ---
TYLENOL GIVEN FOR LOW GRADE TEMP OF 99.4
[2019-03-18] VITALS: BP 101/56
[2019-03-18 08:00] VITALS: BP 118/78
--- NOTE | 2019-03-18 09:00 | NUR ---
case management visits with patient, she states she will be in the hospital a couple more days, she will return home with no needs when medically stable
--- NOTE | 2019-03-18 11:14 | NUR ---
PT WAS INSTRUCTED ON FLUTTER. PT TOLERATED WELL. PT CAN DO ON HER OWN
[2019-03-18 12:00] VITALS: BP 119/71
[2019-03-18 16:00] VITALS: BP 105/51
[2019-03-18 20:00] VITALS: BP 124/67
--- NOTE | 2019-03-18 21:55 | NUR ---
VISTARIL GIVEN PER PATIENT REQUEST FOR COMPLAINTS OF ANXIETY. WILL ASSESS EFFECTIVENESS.
--- NOTE | 2019-03-18 22:18 | NUR ---
24 HR chart check completed.
--- NOTE | 2019-03-18 22:22 | NUR ---
PATIENT STATED SHE GETS THRUSH OFTEN WHEN TAKING ANTIBIOTICS. PT STATED SHE FELT LIKE SHE WAS GETTING THRUSH IN HER THROAT AND REQUESTED SHE BE GIVEN SOMETHING FOR IT. I CALLED DR BURRELL AND HE ORDERED NYSTATIN SWISH AND SWALLOW.
[2019-03-19] VITALS: BP 108/62
[2019-03-19 08:00] VITALS: BP 104/68
--- NOTE | 2019-03-19 09:00 | NUR ---
case management visits with patient, she states she will return home when medically stable and denies any home needs
--- NOTE | 2019-03-19 10:55 | NUR ---
Another Multi-Disciplinary Team meeting was held on 03/19/19, for the purpose of discharge planning. The patient was referred to the following services for follow-up: patient scheduled for a bronchoscopy in am, discharge in a couple of days MELISA IRVIN
[2019-03-19 12:00] VITALS: BP 122/56
[2019-03-19 16:00] VITALS: BP 124/64
--- NOTE | 2019-03-19 16:39 | NUR ---
MEDICATED WITH HYCODAN PER ORDER AND REQUEST.
[2019-03-19 20:00] VITALS: BP 118/72
[2019-03-20] VITALS (8 sets, daily range): BP systolic 101–120; BP diastolic 58–76
--- NOTE | 2019-03-20 07:32 | NUR ---
24 HOUR CHART CHECK COMPLETED
--- NOTE | 2019-03-20 07:35 | NUR ---
[facility] HERE TO TRANSPORT PATIENT TO SURGERY FOR BRONCHOSCOPY WITH .
--- NOTE | 2019-03-20 11:20 | NUR ---
PATIENT NOTIFIED NURSE THAT HER NOSE RING/STUD WAS MISSING AND THAT SHE HAD IT WHEN SHE WENT TO SURGERY THIS AM. PATIENT STATED THAT SHE "REFUSED TO REMOVE THE NOSE RING/STUD" PRIOR TO LEAVING THE FLOOR FOR SURGERY. NURSING ENZYME CHEMIST, SURGERY, FLOOR SERVICES, HOUSEKEEPING, AND LAUNDRY NOTIFIED; ROOM, BATHROOM, BED, GARBAGE, SURGERY SUITE AND LAUNDRY SEARCHED WITHOUT FINDING MISSING ARTICLE.
--- NOTE | 2019-03-20 12:11 | NUR ---
case management visits with patient, patient had a bronch this am, she states she will return home when medically stable and denies any home needs
--- NOTE | 2019-03-20 21:28 | NUR ---
PT GIVEN 25 MG PO VISTARIL AT THIS TIME FOR S/S OF ANXIETY AND RESTLESSNESS. WILL MONITOR FOR EFFECTIVENESS. PT LYING IN BED. RESPIRATIONS EASY AND UNLABORED ON ROOM AIR. NO OTHER S/S OF DISTRESS VOICED. ALL NEEDS MET. ALL SAFETY MEASURES IN PLACE. CALL LIGHT IN REACH.
--- NOTE | 2019-03-20 22:28 | NUR ---
VISTARIL EFFECTIVE PER PT.
--- NOTE | 2019-03-20 23:07 | NUR ---
24 HR chart check completed.
[2019-03-21] VITALS: BP 102/54
[2019-03-21 06:06] LABS: HEMATOCRIT 46.5 % (37.0-47.0); HEMOGLOBIN 15.4 g/dl (12.0-16.0); MEAN CELL VOLUME 98.3 fl (81.0-99.0); MEAN CORPUSCULAR HGB 32.6 pg (27.0-31.0); MEAN CORPUSCULAR HGB CONC 33.1 g/dl (33.0-37.0); MEAN PLATELET VOLUME 10.1 fl (9.6-12.3); PLATELET COUNT AUTOMATED 248 10*3/uL (130-400); RED BLOOD COUNT 4.73 10*6/uL (4.10-5.10); RED CELL DISTRI WIDTH 12.1 % (0-14.5); WHITE BLOOD COUNT 19.6 10*3/uL (4.8-10.8)
[2019-03-21 07:28] LABS: ATYPICAL LYMPHS 2 % (0-0); PLATELET SUFFICIENCY NORMAL (NORMAL); TOTAL CELLS COUNTED 100 #CELLS
[2019-03-21 08:00] VITALS: BP 104/71
[2019-03-21] MEDS ORDERED: AUGMENTIN 875-875 MG PO (09:05)
[2019-03-21] MEDS ORDERED: PREDNISONE10 MG PO (09:05)
--- NOTE | 2019-03-21 09:09 | NUR ---
Pt refused lovenox. Explaned to pt the purpose of it.
--- NOTE | 2019-03-21 09:35 | NUR ---
Discharge instructions reviewed with patient/family. Patient receptive and verbalizes understanding. Follow-up care arranged. Written instructions given to patient/family. MARIA DUBOIS
--- NOTE | 2019-03-21 10:30 | NUR ---
Pt dc via ambulatory with family and belongings. Declined WC.
[2019-03-21 13:07] LABS: ACID FAST SPEC PROCESSING Concentration (.)
== END 2019-03-21 10:30 | disposition home or self-care (01) | DRG 720 ==
LOC: ED 17:49 → EDHOLD 21:14 → 4E 21:14
PROVIDERS: Family Medicine; Internal Medicine Critical Care Medicine; Physician Assistant; ADMIT Internal Medicine
PROC: 0BC28ZZ Extirpation of Matter from Carina, Via Natural or Artificial Opening Endoscopic (ICD-10-PCS; principal; 2019-03-20)
PROC: 0BC18ZZ Extirpation of Matter from Trachea, Via Natural or Artificial Opening Endoscopic (ICD-10-PCS; 2019-03-20)
PROC: 0BC98ZZ Extirpation of Matter from Lingula Bronchus, Via Natural or Artificial Opening Endoscopic (ICD-10-PCS; 2019-03-20)
PROC: 0BC48ZZ Extirpation of Matter from Right Upper Lobe Bronchus, Via Natural or Artificial Opening Endoscopic (ICD-10-PCS; 2019-03-20)
PROC: 0BC88ZZ Extirpation of Matter from Left Upper Lobe Bronchus, Via Natural or Artificial Opening Endoscopic (ICD-10-PCS; 2019-03-20)
PROC: 0BC58ZZ Extirpation of Matter from Right Middle Lobe Bronchus, Via Natural or Artificial Opening Endoscopic (ICD-10-PCS; 2019-03-20)
PROC: 0BC38ZZ Extirpation of Matter from Right Main Bronchus, Via Natural or Artificial Opening Endoscopic (ICD-10-PCS; 2019-03-20)
PROC: 0BC78ZZ Extirpation of Matter from Left Main Bronchus, Via Natural or Artificial Opening Endoscopic (ICD-10-PCS; 2019-03-20)
PROC: 0BC68ZZ Extirpation of Matter from Right Lower Lobe Bronchus, Via Natural or Artificial Opening Endoscopic (ICD-10-PCS; 2019-03-20)
PROC: 0BCB8ZZ Extirpation of Matter from Left Lower Lobe Bronchus, Via Natural or Artificial Opening Endoscopic (ICD-10-PCS; 2019-03-20)
DX: A41.9 Sepsis, unspecified organism (principal); J44.1 Chronic obstructive pulmonary disease with (acute) exacerbation; J18.9 Pneumonia, unspecified organism; R65.20 Severe sepsis without septic shock; J96.01 Acute respiratory failure with hypoxia; J44.0 Chronic obstructive pulmonary disease with (acute) lower respiratory infection; J45.901 Unspecified asthma with (acute) exacerbation; J20.9 Acute bronchitis, unspecified; I10 Essential (primary) hypertension; F17.210 Nicotine dependence, cigarettes, uncomplicated; F41.1 Generalized anxiety disorder; F32.9 Major depressive disorder, single episode, unspecified; F17.200 Nicotine dependence, unspecified, uncomplicated; E87.8 Other disorders of electrolyte and fluid balance, not elsewhere classified; I25.10 Atherosclerotic heart disease of native coronary artery without angina pectoris; T17.590A Other foreign object in bronchus causing asphyxiation, initial encounter; X58.XXXA Exposure to other specified factors, initial encounter; Y93.89 Activity, other specified; Y92.89 Other specified places as the place of occurrence of the external cause; Z71.6 Tobacco abuse counseling; Y99.8 Other external cause status; Z88.1 Allergy status to other antibiotic agents; Z88.8 Allergy status to other drugs, medicaments and biological substances; Z90.710 Acquired absence of both cervix and uterus; Z98.51 Tubal ligation status; Z82.49 Family history of ischemic heart disease and other diseases of the circulatory system; Z80.0 Family history of malignant neoplasm of digestive organs; Z82.5 Family history of asthma and other chronic lower respiratory diseases; Z83.3 Family history of diabetes mellitus; Z79.82 Long term (current) use of aspirin; Z79.899 Other long term (current) drug therapy

== ENCOUNTER → 2019-10-15 | Outpatient (CLI) | payer OTHER ==
[~2019-10-15] MED LIST changes: +ACCUNEB 0.1.25 MG/1 INH; +AUGMENTIN 875-875 MG PO; +MILLIPRED DP5 M1 PO; +SMZ TMP IV; +TESSALON PERLE100 MG PO
== END | disposition home or self-care (01) ==
LOC: RAD 16:51
DX: J43.9 Emphysema, unspecified (principal)

== ENCOUNTER 2020-02-11 16:42 | Emergency (ER) | payer OTHER ==
[~2020-02-11] VITALS: Wt 54.4 kg
[2020-02-11 16:48] VITALS: BP 144/68
[2020-02-11] MEDS ORDERED: PREDNISONE50 MG PO (18:40)
[2020-02-11] MEDS ORDERED: AUGMENTIN 875875 MG PO (18:40)
== END 2020-02-11 19:00 | disposition home or self-care (01) ==
LOC: ED 16:42
DX: J44.1 Chronic obstructive pulmonary disease with (acute) exacerbation (principal); I10 Essential (primary) hypertension; F17.200 Nicotine dependence, unspecified, uncomplicated; Z88.1 Allergy status to other antibiotic agents; Z79.899 Other long term (current) drug therapy; Z79.82 Long term (current) use of aspirin

== ENCOUNTER 2020-12-02 14:34 | Emergency (ER) | payer OTHER ==
[~2020-12-02] VITALS: Ht 154.9 cm; Wt 52.2 kg
[~2020-12-02 14:34] MED LIST changes: +PREDNISONE50 MG PO
[2020-12-02 15:27] LABS: BASO % 0.3 % (0.0-1.0); EOS # 0.3 10*3/uL (0.0-0.4); EOS % 3.1 % (1.0-4.0); HEMATOCRIT 44.3 % (37.0-47.0); LYMPH % 23.6 % (27.0-41.0); MEAN CELL VOLUME 96.7 fl (81.0-99.0); MEAN CORPUSCULAR HGB 32.5 pg (27.0-31.0); MEAN CORPUSCULAR HGB CONC 33.6 g/dl (33.0-37.0); MEAN PLATELET VOLUME 10.6 fl (9.6-12.3); MONO # 0.6 10*3/uL (0.1-1.0); MONO % 6.7 % (3.0-9.0); NEUT # 5.7 10*3/uL (2.3-7.9); PLATELET COUNT AUTOMATED 198 10*3/uL (130-400); RED BLOOD COUNT 4.58 10*6/uL (4.10-5.10); RED CELL DISTRI WIDTH 12.4 % (0-14.5); WHITE BLOOD COUNT 8.6 10*3/uL (4.8-10.8)
[2020-12-02 15:48] LABS: ALBUMIN 3.6 gm/dl (3.1-4.5); ALKALINE PHOSPHATASE 76 U/L (45-117); BUN 9 mg/dl (7-24); CHLORIDE 109 mmol/L (98-107); CREATININE 0.79 mg/dL (0.55-1.02); POTASSIUM 3.8 mmol/L (3.5-5.1); SGOT/AST 17 IU/L (3-35); SGPT/ALT 25 U/L (12-78); SODIUM 141 mmol/L (136-145); TOTAL PROTEIN 6.8 gm/dL (6.4-8.2)
[2020-12-02 15:49] LABS: TROPONIN I < 0.015 ng/ml (<0.045)
[2020-12-02 15:56] VITALS: BP 119/82
[2020-12-02] MEDS ORDERED: MUCINEX DM 30/61 TAB PO (18:56)
[2020-12-02] MEDS ORDERED: PREDNISONE20 M1 PO (18:56)
[2020-12-02] MEDS ORDERED: ZITHROMAX250 MG PO (18:56)
== END 2020-12-02 19:05 | disposition home or self-care (01) ==
LOC: ED 14:34
PROVIDERS: Physician Assistant
DX: J44.1 Chronic obstructive pulmonary disease with (acute) exacerbation (principal); F17.200 Nicotine dependence, unspecified, uncomplicated; F12.10 Cannabis abuse, uncomplicated; Z90.710 Acquired absence of both cervix and uterus; Z98.51 Tubal ligation status; Z79.82 Long term (current) use of aspirin; Z79.899 Other long term (current) drug therapy; Z88.1 Allergy status to other antibiotic agents; Z88.3 Allergy status to other anti-infective agents

== ENCOUNTER → 2021-03-15 | Outpatient (CLI) | payer OTHER ==
[~2021-03-15] MED LIST changes: +MUCINEX DM 30/61 TAB PO; +PREDNISONE20 M1 PO; +ZITHROMAX250 MG PO
[2021-03-15 10:36] LABS: BASO # 0.1 10*3/uL (0.0-0.1); BASO % 0.3 % (0.0-1.0); EOS # 0.3 10*3/uL (0.0-0.4); HEMATOCRIT 46.2 % (37.0-47.0); LYMPH # 3.4 10*3/uL (1.3-4.4); LYMPH % 21.7 % (27.0-41.0); MEAN CELL VOLUME 98.1 fl (81.0-99.0); MEAN CORPUSCULAR HGB 32.7 pg (27.0-31.0); MEAN CORPUSCULAR HGB CONC 33.3 g/dl (33.0-37.0); MEAN PLATELET VOLUME 9.9 fl (9.6-12.3); MONO # 0.7 10*3/uL (0.1-1.0); MONO % 4.5 % (3.0-9.0); NEUT # 10.9 10*3/uL (2.3-7.9); NEUT % 69.6 % (47.0-73.0); PLATELET COUNT AUTOMATED 242 10*3/uL (130-400); RED BLOOD COUNT 4.71 10*6/uL (4.10-5.10); RED CELL DISTRI WIDTH 12.2 % (0-14.5); WHITE BLOOD COUNT 15.7 10*3/uL (4.8-10.8)
[2021-03-15 10:51] LABS: BUN 12 mg/dl (7-24); CHLORIDE 106 mmol/L (98-107); CREATININE 0.65 mg/dL (0.55-1.02); POTASSIUM 4.4 mmol/L (3.5-5.1); SODIUM 137 mmol/L (136-145)
[2021-03-15 10:53] LABS: CHOLESTEROL 204 mg/dL (<200); TRIGLYCERIDES 308 mg/dl (<150)
[2021-03-15 11:02] LABS: LDL CHOLESTEROL 96 mg/dL (9-159)
== END | disposition home or self-care (01) ==
LOC: LAB 10:04
PROVIDERS: ATTEND Registered Nurse
DX: R53.83 Other fatigue (principal); I24.8 Other forms of acute ischemic heart disease

== ENCOUNTER 2021-10-25 07:43 | Emergency (ER) | payer OTHER ==
[~2021-10-25] VITALS: Wt 56.7 kg
[2021-10-25 07:53] VITALS: BP 125/80
[2021-10-25] MEDS ORDERED: PREDNISONE50 MG PO (08:13)
[2021-10-25] MEDS ORDERED: CYCLOBENZAPRINE5 M3 PO (08:13)
== END 2021-10-25 08:25 | disposition home or self-care (01) ==
LOC: ED 07:43
DX: M62.830 Muscle spasm of back (principal); Z88.1 Allergy status to other antibiotic agents; Z79.82 Long term (current) use of aspirin; Z79.899 Other long term (current) drug therapy; Z90.710 Acquired absence of both cervix and uterus; Z98.51 Tubal ligation status

== ENCOUNTER 2022-06-10 10:42 | Emergency (ER) | payer OTHER ==
[~2022-06-10] VITALS: Ht 162.5 cm
[~2022-06-10 10:42] MED LIST changes: +CYCLOBENZAPRINE5 M3 PO
[2022-06-10 10:52] VITALS: BP 131/76
[2022-06-10 11:17] LABS: BASO % 0.2 % (0.0-1.0); EOS # 0.1 10*3/uL (0.0-0.4); EOS % 0.7 % (1.0-4.0); LYMPH # 1.7 10*3/uL (1.3-4.4); LYMPH % 10.6 % (27.0-41.0); MEAN CELL VOLUME 96.6 fl (81.0-99.0); MEAN CORPUSCULAR HGB 32.4 pg (27.0-31.0); MEAN CORPUSCULAR HGB CONC 33.5 g/dl (33.0-37.0); MEAN PLATELET VOLUME 10.3 fl (9.6-12.3); MONO % 6.2 % (3.0-9.0); NEUT # 13.5 10*3/uL (2.3-7.9); NEUT % 81.9 % (47.0-73.0); PLATELET COUNT AUTOMATED 207 10*3/uL (130-400); RED BLOOD COUNT 4.45 10*6/uL (4.10-5.10); WHITE BLOOD COUNT 16.5 10*3/uL (4.8-10.8)
[2022-06-10 11:34] LABS: ALKALINE PHOSPHATASE 56 U/L (46-116); BUN 7 mg/dl (9-23); CHLORIDE 108 mmol/L (98-107); POTASSIUM 3.8 mmol/L (3.4-5.1); SGPT/ALT 18 U/L (10-49); TOTAL PROTEIN 6.4 gm/dL (6.0-8.0)
[2022-06-10] MEDS ORDERED: MEDROL DOSEPAK4 MG PO (12:55)
[2022-06-10] MEDS ORDERED: AMOX-CLAV 875-1 EACH PO (12:55)
[2022-06-10] MEDS ORDERED: BROMFED DM COU118 M2 PO (12:55)
== END 2022-06-10 13:09 | disposition home or self-care (01) ==
LOC: ED 10:42
PROVIDERS: Nurse Practitioner Family
DX: J06.9 Acute upper respiratory infection, unspecified (principal); Z20.822 Contact with and (suspected) exposure to COVID-19; J44.9 Chronic obstructive pulmonary disease, unspecified; Z88.1 Allergy status to other antibiotic agents; Z79.899 Other long term (current) drug therapy; Z79.82 Long term (current) use of aspirin; Z90.710 Acquired absence of both cervix and uterus; Z98.51 Tubal ligation status; Z87.891 Personal history of nicotine dependence

== ENCOUNTER 2024-03-22 18:31 | Emergency (ER) | payer OTHER ==
[~2024-03-22] VITALS: Ht 152.4 cm; Wt 42.6 kg
[~2024-03-22 18:31] MED LIST changes: +AMOX-CLAV 875-1 EACH PO; +BROMFED DM COU118 M2 PO
[2024-03-22 18:52] VITALS: BP 130/87
[2024-03-22] MEDS ORDERED: Albuterol Sulf/Ipratropium 3 ML VIAL NEB ONE (19:00)
[2024-03-22] MEDS ORDERED: methylPREDNISolone sod succ 125 MG VIAL IV ONE (19:00)
[2024-03-22 19:19] LABS: BASO % 0.1 % (0.0-1.0); EOS # 0.1 10*3/uL (0.0-0.4); EOS % 0.8 % (1.0-4.0); HEMATOCRIT 44.9 % (37.0-47.0); LYMPH % 20.3 % (27.0-41.0); MEAN CELL VOLUME 96.1 fl (81.0-99.0); MEAN CORPUSCULAR HGB 32.5 pg (27.0-31.0); MEAN CORPUSCULAR HGB CONC 33.9 g/dl (33.0-37.0); MONO # 0.9 10*3/uL (0.1-1.0); MONO % 6.4 % (3.0-9.0); NEUT # 10.5 10*3/uL (2.3-7.9); PLATELET COUNT AUTOMATED 200 10*3/uL (130-400); RED BLOOD COUNT 4.67 10*6/uL (4.10-5.10); RED CELL DISTRI WIDTH 12.3 % (0-14.5); WHITE BLOOD COUNT 14.6 10*3/uL (4.8-10.8)
[2024-03-22] MEDS ORDERED: Acetaminophen/Hydrocodone 5 MG/325 MG TABLET PO ONE (19:30)
[2024-03-22 19:34] LABS: BUN 10 mg/dl (9-23); CHLORIDE 103 mmol/L (98-107)
[2024-03-22] MEDS ORDERED: AVPAK AZITHROM250 M1 PO (19:52)
[2024-03-22] MEDS ORDERED: HYDROCODONE-AC1 EAC1 PO (19:52)
[2024-03-22] MEDS ORDERED: PREDNISONE20 M1 PO (19:52)
[2024-03-22] MEDS ORDERED: AZITHROMYCIN 250 MG TAB PO ONE (20:00)
== END 2024-03-22 20:21 | disposition home or self-care (01) ==
LOC: ED 18:31
PROVIDERS: Nurse Practitioner Family
DX: S22.31XA Fracture of one rib, right side, initial encounter for closed fracture (principal); J44.1 Chronic obstructive pulmonary disease with (acute) exacerbation; F41.9 Anxiety disorder, unspecified; F32.A Depression, unspecified; E78.00 Pure hypercholesterolemia, unspecified; I10 Essential (primary) hypertension; F17.200 Nicotine dependence, unspecified, uncomplicated; F12.10 Cannabis abuse, uncomplicated; Z86.16 Personal history of COVID-19; Z88.1 Allergy status to other antibiotic agents; Z88.8 Allergy status to other drugs, medicaments and biological substances; Z90.710 Acquired absence of both cervix and uterus; Z95.5 Presence of coronary angioplasty implant and graft; Z98.51 Tubal ligation status; Z98.890 Other specified postprocedural states; W01.198A Fall on same level from slipping, tripping and stumbling with subsequent striking against other object, initial encounter; Y93.89 Activity, other specified; Y92.89 Other specified places as the place of occurrence of the external cause; Y99.8 Other external cause status

== ENCOUNTER 2024-06-24 13:34 | Emergency (ER) | payer OTHER ==
[~2024-06-24] VITALS: Ht 152.4 cm; Wt 44.0 kg
[~2024-06-24 13:34] MED LIST changes: +AVPAK AZITHROM250 M1 PO; +HYDROCODONE-AC1 EAC1 PO
[2024-06-24 13:45] VITALS: BP 139/94
[2024-06-24 14:06] LABS: BASO # 0.1 10*3/uL (0.0-0.1); BASO % 0.3 % (0.0-1.0); EOS # 0.1 10*3/uL (0.0-0.4); EOS % 0.7 % (1.0-4.0); HEMATOCRIT 44.4 % (37.0-47.0); MEAN CELL VOLUME 95.5 fl (81.0-99.0); MEAN CORPUSCULAR HGB 32.3 pg (27.0-31.0); MEAN CORPUSCULAR HGB CONC 33.8 g/dl (33.0-37.0); MEAN PLATELET VOLUME 10.1 fl (9.6-12.3); MONO # 1.3 10*3/uL (0.1-1.0); MONO % 6.8 % (3.0-9.0); NEUT # 14.4 10*3/uL (2.3-7.9); NEUT % 77.8 % (47.0-73.0); PLATELET COUNT AUTOMATED 209 10*3/uL (130-400); RED BLOOD COUNT 4.65 10*6/uL (4.10-5.10); WHITE BLOOD COUNT 18.6 10*3/uL (4.8-10.8)
[2024-06-24 14:15] LABS: ACT PARTIAL THROMBO TIME 28.3 SECONDS (20.0-32.1)
[2024-06-24] MEDS ORDERED: Dexamethasone Sodium Phospha 20 MG/5 ML VIAL IV ONE (14:15)
[2024-06-24] MEDS ORDERED: MAGNESIUM SULFATE 50 ML IV ONE (14:15)
[2024-06-24] MEDS ORDERED: Albuterol Sulf/Ipratropium 3 ML VIAL NEB SCH (14:15)
[2024-06-24] MEDS ORDERED: Ketorolac Tromethamine 30 MG/ML VIAL IV ONE (14:15)
[2024-06-24 14:27] LABS: CPK 56 U/L (34-171); LIPASE 25 U/L (12-53)
[2024-06-24 14:28] LABS: ALKALINE PHOSPHATASE 84 U/L (46-116); BUN 8 mg/dl (9-23); CHLORIDE 104 mmol/L (98-107); POTASSIUM 3.6 mmol/L (3.4-5.1); SGPT/ALT 13 U/L (5-49); TOTAL PROTEIN 6.7 gm/dL (6.0-8.0)
[2024-06-24] MEDS ORDERED: SODIUM CHLORIDE 0.9% 1,000 ML IV ONE (14:37)
[2024-06-24] MEDS ORDERED: VENT7GM INH (16:09)
[2024-06-24] MEDS ORDERED: ZITHROMAX250 MG PO (16:11)
[2024-06-24] MEDS ORDERED: FLUCONAZOLE100 MG PO (16:20)
== END 2024-06-24 18:38 | disposition home or self-care (01) ==
LOC: ED 13:34
PROVIDERS: Emergency Medicine
DX: R07.89 Other chest pain (principal); Z20.822 Contact with and (suspected) exposure to COVID-19; J44.9 Chronic obstructive pulmonary disease, unspecified; F17.200 Nicotine dependence, unspecified, uncomplicated; F12.10 Cannabis abuse, uncomplicated; Z88.1 Allergy status to other antibiotic agents; Z88.8 Allergy status to other drugs, medicaments and biological substances; Z90.710 Acquired absence of both cervix and uterus; Z95.5 Presence of coronary angioplasty implant and graft; Z98.51 Tubal ligation status; Z98.890 Other specified postprocedural states